=== PATIENT | male | born 1955 | race Caucasian/White ===

== ENCOUNTER 2019-04-17 14:35 | Emergency (ER) | payer MEDICAID, MEDICARE, OTHER ==
[2019-04-17 14:56] VITALS: BP 125/67; PULSE 68
--- NOTE | 2019-04-17 15:54 | CR ---
3223-2811 RAD/RAD Sacrum and Coccyx; 1623-0716 RAD/RAD Lumbar Spine 2-3V Exam: RAD Sacrum and Coccyx, RAD Lumbar Spine 2-3V Indication:PAIN IN LUMBAR/SACRAL AREA LEFT SIDE. Comparison: No prior imaging for comparison. Discussion: Normal examination of the sacrum and coccyx. Lumbar spine demonstrates no evidence of an acute fracture or compression deformity. Mild changes of lumbar spondylosis. Intervertebral disc heights are well-preserved. Slight dextroconvexity of the thoracolumbar spine, nonspecific and possibly positional. Impression: Mild changes of lumbar spondylosis. Otherwise, no significant abnormality in the spine, including the sacrum and coccyx. Jackson Schmid MD 04/17/19 [id number] Thank you for allowing us to participate in the care of your patient.
[2019-04-17] MEDS ORDERED: Methocarbamol 500 MG Tab PO ONE (15:56)
[2019-04-17] MEDS ORDERED: Dexamethasone 4 MG/ML SDV IM ONE (15:56)
--- NOTE | 2019-04-17 16:07 | EDM.PDOC ---
ED HPI GENERAL MEDICAL PROBLEM - General Chief Complaint: Back Pain or Injury Stated Complaint: BACK PROBLEMS Time Seen by Provider: 04/17/19 15:27 Source of Information: Reports: Patient History Limitations: Reports: No Limitations - History of Present Illness INITIAL COMMENTS - FREE TEXT/NARRATIVE: Patient is a 63-year-old gentleman who presents to the emergency department this afternoon with a complaint of low back pain. Patient states that he is new to the area and has been doing a lot of moving furniture. Patient denies specific incident. However, he did have a fall a couple of years ago and never had an evaluation. 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 Patient also has a complaint of hemorrhoids. States they are intermittent, hasn't had any bleeding with wiping in 1 week. Denies any incident where he found blood in his stool or in the bowl, but just while wiping. Patient is currently on Plavix for history of cardiac stents. Patient denies weakness, easy bruising or bleeding from gums, blood in urine, chest pain, shortness of breath, abdominal pain, dysuria, or testicular pain. Onset: Gradual Duration: Day(s): Location: Reports: Back Quality: Reports: Ache Severity: Mild Improves with: Reports: Immobilization Worsens with: Reports: Movement Context: Reports: Activity Associated Symptoms: Reports: No Other Symptoms Left Middle Back Pain Score (Numeric/FACES): 6 - Related Data Allergies Allergy/AdvReac Type Severity Reaction Status Date / Time No Known Drug Allergies Allergy Cannot Verified 04/17/19 14:48 Remember Home Meds: Home Meds Aspirin [Ecotrin EC] 81 mg PO DAILY 04/17/19 [History] Clopidogrel [Plavix] 75 mg PO DAILY 04/17/19 [History] Docusate Sodium [Dulcolax Stool Softener] 100 mg PO DAILY #30 capsule 04/17/19 [ Rx] Hydrocortisone [Proctosol-HC] 28.35 gm RC BID #1 cream..g. 04/17/19 [Rx] Lisinopril 10 mg PO QAM 04/17/19 [History] Methocarbamol [Robaxin-750] 750 mg PO Q6HR #30 tablet 04/17/19 [Rx] Metoprolol Tartrate [Lopressor] 50 mg PO QAM 04/17/19 [History] SitaGLIPtin [Januvia] 50 mg PO DAILY 04/17/19 [History] atorvaSTATin Calcium [Atorvastatin Calcium] 80 mg PO BEDTIME 04/17/19 [History] glipiZIDE [Glipizide ER] 5 mg PO QAM 04/17/19 [History] glipiZIDE [Glipizide ER] 10 mg PO QAM 04/17/19 [History] metFORMIN HCl [Metformin HCl] 1,000 mg PO DAILY 04/17/19 [History] Past Medical History HEENT History: Reports: Impaired Vision Cardiovascular History: Reports: High Cholesterol, Hypertension, SC Gastrointestinal History: Reports: Hemorrhoids, Hiatal Hernia Musculoskeletal History: Reports: Arthritis, Back Pain, Chronic Endocrine/Metabolic History: Reports: IDDM - Past Surgical History HEENT Surgical History: Reports: Other (See Below) Other HEENT Surgeries/Procedures: no teeth , full dentures Cardiovascular Surgical History: Reports: Coronary Artery Stent GI Surgical History: Reports: None Endocrine Surgical History: Reports: None Musculoskeletal Surgical History: Reports: None Social & Family History - Tobacco Use Smoking Status *Q: Current Every Day Smoker Years of Tobacco use: 52 Packs/Tins Daily: 3 - Caffeine Use Caffeine Use: Reports: Soda, Tea Other Caffeine Use: regular - Recreational Drug Use Recreational Drug Use: No ED ROS GENERAL - Review of Systems Review Of Systems: Comprehensive ROS is negative, except as noted in HPI. Constitutional: Reports: No Symptoms HEENT: Reports: No Symptoms Respiratory: Reports: No Symptoms Cardiovascular: Reports: No Symptoms Endocrine: Reports: No Symptoms GI/Abdominal: Reports: Other (Hemorrhoids) : Reports: No Symptoms Musculoskeletal: Reports: Back Pain (Lumbosacral), Other (Lumbar paravertebral) Skin: Reports: No Symptoms (\) Neurological: Reports: No Symptoms Psychiatric: Reports: No Symptoms Hematologic/Lymphatic: Reports: No Symptoms Immunologic: Reports: No Symptoms ED EXAM,LOWER BACK PAIN/INJURY - Physical Exam Exam: See Below Exam Limited By: No Limitations General Appearance: Alert, WD/WN, No Apparent Distress Throat/Mouth: Normal Inspection, Normal Oropharynx, No Airway Compromise Head: Atraumatic, Normocephalic Neck: Normal Inspection, Supple, Non-Tender, Full Range of Motion Respiratory/Chest: No Respiratory Distress, Lungs Clear, Normal Breath Sounds, No Accessory Muscle Use, Chest Non-Tender Cardiovascular: Regular Rate, Rhythm, No Murmur GI/Abdominal: Normal Bowel Sounds, Soft, Non-Tender, No Organomegaly, No Distention, No Abnormal Bruit, No Mass, Pelvis Stable Rectal (Males) Exam: Other (Declined exam) Extremities: Normal Inspection, No Pedal Edema Neurological: Alert, Normal Mood/Affect, Normal Dorsiflexion, No Motor/Sensory Deficits, Oriented x 3 Psychiatric: Normal Affect, Normal Mood Skin Exam: Warm, Dry, Intact, Normal Color, No Rash Lymphatic: No Adenopathy Course - Vital Signs Last Recorded V/S: Last Vital Signs Temp 96.9 F 04/17/19 14:42 Pulse 68 04/17/19 14:42 Resp 18 04/17/19 14:42 BP 125/67 04/17/19 14:42 Pulse Ox 98 04/17/19 14:42 - Orders/Labs/Meds Orders: Active Orders 24 hr Category Date Time Status Methocarbamol [Robaxin] Med 04/17/19 15:56 Once 1,000 mg PO ONETIME ONE dexAMETHasone [Dexamethasone] Med 04/17/19 15:56 Once 8 mg IM ONETIME ONE - Radiology Interpretation Free Text/Narrative:: Lumbosacral x-ray shows mild degenerative joint disease - Re-Assessments/Exams Free Text/Narrative Re-Assessment/Exam: 04/17/19 16:21 Patient afebrile, vital signs stable, and somewhat relieved. Patient given Decadron and Robaxin in the ER. Patient given prescription for Proctosol, Dulcolax, and Robaxin. Departure - Departure Time of Disposition: 16:22 Disposition: Home, Self-Care 01 Condition: Good Clinical Impression: Low back pain Qualifiers: Chronicity: acute Back pain laterality: unspecified Sciatica presence: without sciatica Qualified Code(s): M54.5 - Low back pain Degenerative joint disease Qualifiers: Osteoarthritis location: unspecified site Osteoarthritis type: unspecified Qualified Code(s): M19.90 - Unspecified osteoarthritis, unspecified site Hemorrhoids Qualifiers: Hemorrhoid type: unspecified Qualified Code(s): K64.9 - Unspecified hemorrhoids - Discharge Information Instructions: Muscle Strain, [id number], Acute Back Pain, Adult, Hemorrhoids , [id number] Referrals: Sasha Amaya, [employer] [Primary Care Provider] - Additional Instructions: Follow-up at [facility] in next 2-3 days. Return to the emergency department sooner if symptoms continue or worsen. - My Orders Last 24 Hours: My Active Orders 04/17/19 15:56 Methocarbamol [Robaxin] 1,000 mg PO ONETIME ONE dexAMETHasone [Dexamethasone] 8 mg IM ONETIME ONE - Assessment/Plan Last 24 Hours: My Active Orders 04/17/19 15:56 Methocarbamol [Robaxin] 1,000 mg PO ONETIME ONE dexAMETHasone [Dexamethasone] 8 mg IM ONETIME ONE Assessment:: Back pain Plan: Follow-up with PCP
== END 2019-04-17 16:30 | disposition home or self-care (01) ==
LOC: KA.ED 14:35
DX: M54.5 Low back pain (principal); M19.90 Unspecified osteoarthritis, unspecified site; K64.9 Unspecified hemorrhoids; E78.00 Pure hypercholesterolemia, unspecified; I10 Essential (primary) hypertension; I25.2 Old myocardial infarction; E11.9 Type 2 diabetes mellitus without complications; F17.210 Nicotine dependence, cigarettes, uncomplicated; Z95.5 Presence of coronary angioplasty implant and graft; Z79.02 Long term (current) use of antithrombotics/antiplatelets; Z79.82 Long term (current) use of aspirin; Z79.899 Other long term (current) drug therapy; Z79.84 Long term (current) use of oral hypoglycemic drugs
CPT/HCPCS: 72100; 72220; 96372; 99283-25; A9270-GY; J1100

== ENCOUNTER 2020-06-23 09:03 | Day surgery (SDC) | payer MEDICARE, MEDICAID ==
[2020-06-23] MEDS ORDERED: Midazolam 1 MG/ML 2 ML SDV IV ONE (09:04)
[2020-06-23] MEDS ORDERED: Propofol 200 MG/20 ML SDV IV ONE (09:04)
[2020-06-23] MEDS ORDERED: Sodium Chloride 0.9% 1,000 ML IV SCH (09:30)
[2020-06-23] MEDS ORDERED: Propofol 200 MG/20 ML SDV ONE (10:10)
[2020-06-23] MEDS ORDERED: Midazolam 1 MG/ML 2 ML SDV ONE (10:10)
[2020-06-23] MEDS ORDERED: Lactated Ringers 1,000 ML ONE (10:54)
--- NOTE | 2020-06-23 11:36 | PCM.PRNOTE ---
- Free Text/Narrative Note: PROCEDURE PERFORMED: Colonoscopy with polypectomy PRE-PROCEDURE DIAGNOSIS/INDICATION FOR PROCEDURE: Rectal bleeding, no hx of colorectal cancer screening CONSENT: Informed consent was obtained prior to the procedure after discussion of the risks (including pain, bleeding, infection, perforation, missed polyps, inabi lity to completely remove polyps or complete procedure necessitating repeat colonoscopy, adverse reaction to anesthesia, cardiovascular event), benefits and alternatives and expected outcomes. The patient expressed understanding and wished to proceed. Verbal consent given and consent form signed. PROCEDURAL PAUSE: Completed SEDATION: Per anesthesia DESCRIPTION OF PROCEDURE: Patient was placed in the left lateral decubitus position. After adequate sedation and anesthetic was administered, a rectal exam was performed revealing large external hemorrhoid at 11 o'clock position and an approximately 50g prostate with R sided nodule. A lubricated Olympus Video Colonoscope was inserted into the rectum and air insufflation was performed. The colonoscope was advanced through the rectum, sigmoid, descending, transverse, and ascending colon without difficulties, though notable for moderate retained stool. The cecum was reached and the ileocecal valve as well as the appendiceal orifice were identified and pictorially documented. After adequate visualization of the cecum, the scope was withdrawn, giving 360-degree views of the colonic mucosa and retroflexion was performed in the rectum with the following findings noted: Ileocecal valve: Normal Cecum: One <0.5cm sessile polyp removed with cold forceps Ascending colon: One <0.5cm sessile polyp at 120cm removed with cold forceps Hepatic flexure: Normal Transverse colon: Normal Splenic flexure: Normal Descending colon: Normal Sigmoid colon: One 7cm polyp at 50cm removed with hot snare as well as One 7cm polyp at 25cm removed with hot snare Rectum: Internal hemorrhoids without current bleeding All polyps removed with complete removal and subsequent hemostasis noted. The scope was straightened, air suction performed, and the scope withdrawn without complication. Preparation adequacy Glasgow Bowel Prep 11/28. IMPRESSION: Colonoscopy performed revealing: - 4 polyps s/p polypectomy, pathology now pending - Internal hemorrhoids - External hemorrhoid at 11 o'clock position - Enlarged prostate with R sided nodule PLAN: Follow-up appt in the clinic in 7-10 days to discuss results and make recommenda tion for next colonoscopy as well as further discuss evaluation of enlarged prostate and nodule.
== END 2020-06-23 12:40 | disposition home or self-care (01) ==
LOC: KA.SDS 09:03
PROVIDERS: ATTEND Family Medicine
DX: D12.5 Benign neoplasm of sigmoid colon (principal); D12.0 Benign neoplasm of cecum; K62.5 Hemorrhage of anus and rectum; K64.8 Other hemorrhoids; K64.4 Residual hemorrhoidal skin tags; N40.0 Benign prostatic hyperplasia without lower urinary tract symptoms; D50.9 Iron deficiency anemia, unspecified; E11.9 Type 2 diabetes mellitus without complications; I25.2 Old myocardial infarction; I10 Essential (primary) hypertension; E78.2 Mixed hyperlipidemia; I25.5 Ischemic cardiomyopathy; F17.210 Nicotine dependence, cigarettes, uncomplicated; Z79.84 Long term (current) use of oral hypoglycemic drugs; Z79.899 Other long term (current) drug therapy; Z88.8 Allergy status to other drugs, medicaments and biological substances
CPT/HCPCS: 00812; 82962; 88305; J2250; J2704; J7030

== ENCOUNTER 2024-02-07 07:03 | Day surgery (SDC) | payer MEDICAID, MEDICARE, OTHER ==
[~2024-02-07 07:03] MED LIST: Sodium Chloride 0.9% 10 ML Syringe FLUSH PRN
[2024-02-07] MEDS: Sodium Chloride 0.9% 1,000 ML IV SCH (07:40)
[2024-02-07] MEDS ORDERED: Propofol 200 MG/20 ML SDV ONE (07:44)
== END 2024-02-07 10:13 | disposition home or self-care (01) ==
LOC: KA.SDS 07:03
PROVIDERS: ATTEND Family Medicine
DX: Z12.11 Encounter for screening for malignant neoplasm of colon (principal); D12.8 Benign neoplasm of rectum; K64.4 Residual hemorrhoidal skin tags; K64.8 Other hemorrhoids; Z86.010 Personal history of colon polyps; I11.0 Hypertensive heart disease with heart failure; I50.20 Unspecified systolic (congestive) heart failure; E78.2 Mixed hyperlipidemia; E11.9 Type 2 diabetes mellitus without complications; I25.2 Old myocardial infarction; Z87.891 Personal history of nicotine dependence; Z79.84 Long term (current) use of oral hypoglycemic drugs; Z79.899 Other long term (current) drug therapy; Z88.8 Allergy status to other drugs, medicaments and biological substances
CPT/HCPCS: 45380; 82947; J2704; J7030; 00811; J3490

== ENCOUNTER 2024-10-28 10:11 | Emergency (ER) | payer MEDICARE ==
[2024-10-28] MEDS: Acetaminophen/HYDROcodone 325-5 MG Tab PO ONE ×3 (11:20→11:44)
== END 2024-10-28 11:44 | disposition home or self-care (01) ==
LOC: KA.ED 10:11
DX: S22.32XA Fracture of one rib, left side, initial encounter for closed fracture (principal); I10 Essential (primary) hypertension; E78.00 Pure hypercholesterolemia, unspecified; E11.9 Type 2 diabetes mellitus without complications; Z86.16 Personal history of COVID-19; Z79.899 Other long term (current) drug therapy; Z79.4 Long term (current) use of insulin; Z91.010 Allergy to peanuts; Z88.8 Allergy status to other drugs, medicaments and biological substances; W19.XXXA Unspecified fall, initial encounter
CPT/HCPCS: 71101-LT; 72220; 99283; A9270-GY